=== PATIENT | male | born 1970 | race Caucasian/White ===

== ENCOUNTER 2017-03-16 07:18 | Day surgery (SDC) | payer OTHER ==
[2017-03-16] MEDS ORDERED: Propofol 10 mg/ml Inj (20 ML) ONE (10:30)
--- NOTE | 2017-03-16 10:31 | CP.SDSHP ---
Same Day Surgery H & P - History Proposed Procedure: EGD Pre-Op Diagnosis: SEE NOTES - Previous Medical/Surgical History Neuro: Other Misc: Other Pain: 4.Moderate Pain - Allergies Allergies: Allergies No Known Allergies Allergy (Verified 10/03/14 16:04) - Physical Exam General Appearance: N Vital Signs: Vital Signs 03/16/17 03/16/17 08:38 08:47 Temperature 97 F L 97 F L Pulse Rate 51 L 51 L Respiratory 20 20 Rate Blood Pressure 122/7 L 122/7 L O2 Sat by Pulse 99 Oximetry Mental Status: Alert & Oriented x3 Neuro: WNL Heart: WNL Lungs: WNL GI: Other - {Optional Preform as Required} Breast: WNL Abdomen: Other Rectal: Other Integument: WNL : WNL Ortho: Other ENT: WNL - Impression Pt. Evaluated Today:Candidate for Anesthesia & Procedure: Yes - Date & Time Time: 10:31 Short Stay Discharge - Short Stay Discharge Admitting Diagnosis/Reason for Visit: DYSPEPSIA Disposition: HOME/ ROUTINE
[2017-03-16] MEDS ORDERED: Lactated Ringer's 500 ML IV ONE ×2 (10:32)
[2017-03-16] MEDS ORDERED: Pantoprazole 40 mg EC Tab PO ONE (11:00)
[2017-03-16] MEDS ORDERED: Belladonna-Phenobarbital PO ONE (11:00)
[2017-03-16 11:11] VITALS: TEMP 97.3
[2017-03-16 11:39] VITALS: O2SAT 100
[2017-03-16 11:42] VITALS: BP 115/70; PULSE 45; RESP 14
== END 2017-03-16 11:46 | disposition home or self-care (01) ==
LOC: C.ENDO 07:18
PROVIDERS: ATTEND Specialist
DX: K29.50 Unspecified chronic gastritis without bleeding (principal); K44.9 Diaphragmatic hernia without obstruction or gangrene
CPT/HCPCS: 43239; 88305; 88342; J2704; J7120

== ENCOUNTER 2017-12-14 10:47 | Emergency (ER) | payer OTHER ==
[2017-12-14 11:20] VITALS: RESP 20; TEMP 97.8
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
--- NOTE | 2017-12-14 13:21 | CT ---
PROCEDURE: CT HEAD WITHOUT CONTRAST. HISTORY: head injury, dizziness COMPARISON: None available. TECHNIQUE: Axial computed tomography images were obtained through the head/brain without intravenous contrast. Radiation dose: Total exam DLP = 893.26 mGy-cm. This CT exam was performed using one or more of the following dose reduction techniques: Automated exposure control, adjustment of the mA and/or kV according to patient size, and/or use of iterative reconstruction technique. FINDINGS: HEMORRHAGE: No intracranial hemorrhage. BRAIN: No mass effect or edema. No atrophy or chronic microvascular ischemic changes. VENTRICLES: Unremarkable. No hydrocephalus. CALVARIUM: Unremarkable. PARANASAL SINUSES: Unremarkable as visualized. No significant inflammatory changes. MASTOID AIR CELLS: Unremarkable as visualized. No inflammatory changes. OTHER FINDINGS: None. IMPRESSION: Normal CT of the Head.
[2017-12-14 14:23] VITALS: BP 117/76; PULSE 55
[2017-12-14 17:14] VITALS: O2SAT 98
== END 2017-12-14 14:32 | disposition home or self-care (01) ==
LOC: C.ER 10:47
DX: S09.90XA Unspecified injury of head, initial encounter (principal); V74.6XXA Passenger on bus injured in collision with heavy transport vehicle or bus in traffic accident, initial encounter; R42 Dizziness and giddiness; Z72.0 Tobacco use

== ENCOUNTER 2017-12-29 09:00 | Day surgery (SDC) | payer OTHER ==
[2017-12-24 13:51] VITALS: BMI 24.3
[2017-12-29 09:28] VITALS: TEMP 97.6
[2017-12-29] MEDS ORDERED: Midazolam 2 MG/2 ML VIAL ONE (10:21)
--- NOTE | 2017-12-29 10:46 | CP.SDSHP ---
Same Day Surgery H & P - History Proposed Procedure: CT guided left lung nodule biopsy Pre-Op Diagnosis: Lung lesion - Allergies Allergies: Allergies No Known Allergies Allergy (Verified 06/01/17 12:29) - Physical Exam Vital Signs: Vital Signs 12/29/17 09:13 Temperature 97.6 F Pulse Rate 58 L Respiratory 18 Rate Blood Pressure 125/76 O2 Sat by Pulse 97 Oximetry Mental Status: Alert & Oriented x3 Neuro: WNL Heart: WNL Lungs: WNL GI: WNL - {Optional Preform as Required} Other Pertinent Findings: CT scan performed today showed no lung nodules. The lingular lesion has resolved. - Impression Impression: CT scan performed today showed resolution of lingular lesion seen on outside CT scan. The lungs are clear. No biopsy performed. Pt. Evaluated Today:Candidate for Anesthesia & Procedure: No Short Stay Discharge - Short Stay Discharge Admitting Diagnosis/Reason for Visit: DX: LUNG NODULE Disposition: HOME/ ROUTINE
[2017-12-29 11:51] VITALS: BP 117/69; PULSE 56; RESP 15; O2SAT 99
--- NOTE | 2017-12-30 10:34 | CT ---
PROCEDURE: CT Chest without contrast HISTORY: Left lung mass COMPARISON: None. TECHNIQUE: Contiguous axial images were obtained through the chest without intravenous contrast enhancement. Sagittal and coronal reconstructions were performed. Radiation dose (DLP): 376.41 MGy-cm. This CT exam was performed using one or more of the following dose reduction techniques: Automated exposure control, adjustment of the mA and/or kV according to patient size, and/or use of iterative reconstruction technique. FINDINGS: LUNGS: Clear lungs with minimal dependent atelectasis. Previously described lingular lesion is no longer present. Visualized airway clear. MEDIASTINUM: Unremarkable thoracic aorta. No aneurysm. Normal sized heart. Main pulmonary artery unremarkable. No vascular congestion. No lymphadenopathy. PLEURA: No pleural fluid. No pneumothorax. BONES: No fracture. No destructive lesion. UPPER ABDOMEN: Grossly unremarkable. OTHER FINDINGS: None. IMPRESSION: Unremarkable non-contrast enhanced CT of the chest. The previously described lesion in the lingula on an outside CT is longer present. Previously shown likely represented atelectasis or infectious process.
== END 2017-12-29 11:55 | disposition home or self-care (01) ==
LOC: C.SPRAD 09:00
PROVIDERS: ATTEND Radiology Vascular & Interventional Radiology
DX: R91.8 Other nonspecific abnormal finding of lung field (principal)
CPT/HCPCS: 32405; 77012; J2250; J3010

== ENCOUNTER 2018-10-24 12:33 | Outpatient (CLI) | payer MEDICAID | END 2018-10-24 12:34 | disposition home or self-care (01) | LOC: C.LAB 12:33 ==

== ENCOUNTER 2018-11-02 10:19 | Outpatient (CLI) | payer MEDICAID | END 2018-11-02 10:20 | disposition home or self-care (01) | LOC: C.LAB 10:19 ==

== ENCOUNTER 2018-12-15 10:38 | Outpatient (CLI) | payer MEDICAID | END 2018-12-15 10:39 | disposition home or self-care (01) | LOC: C.MRIC 10:38 ==